=== PATIENT | female | born 1960 | race Two or more races ===

== ENCOUNTER 2019-01-14 07:59 | Emergency (ER) | payer OTHER ==
[~2019-01-14] VITALS: Ht 157.5 cm; Wt 58.5 kg
[2019-01-14 08:54] VITALS: BP 125/40
== END 2019-01-14 08:55 | disposition home or self-care (01) ==
LOC: ER 08:01
DX: K59.00 Constipation, unspecified (principal); M54.9 Dorsalgia, unspecified; R22.2 Localized swelling, mass and lump, trunk; E11.9 Type 2 diabetes mellitus without complications; Z88.5 Allergy status to narcotic agent
CPT/HCPCS: 99283

== ENCOUNTER 2019-03-07 10:54 | Inpatient (IN) | payer OTHER ==
[2019-03-07] VITALS (16 sets, daily range): BP systolic 159–202; BP diastolic 54–90
[~2019-03-07] VITALS: Ht 157.5 cm; Wt 57.6 kg
[2019-03-07] MEDS ORDERED: ringers solution, lacted 1,000 ML IV SCH ×2 (12:40→17:43)
[2019-03-07] MEDS ORDERED: famotidine 20mg tablet PO ONE (12:40)
[2019-03-07] MEDS ORDERED: NO HOME MEDS (13:04)
[2019-03-07 13:05] LABS: BASOPHILS # (AUTO) 0.1 X10'3 (0-0.2); EOSINOPHILS # (AUTO) 0.1 X10'3 (0-0.9); EOSINOPHILS % (AUTO) 1.1 % (0-6); LYMPHOCYTES # (AUTO) 1.3 X10'3 (1.1-4.8); LYMPHOCYTES % (AUTO) 12.7 % (21-51); MEAN CORPUSCULAR HGB CONC 30.7 g/dL (33.0-36.5); MEAN CORPUSCULAR VOLUME 65.1 FL (78-98); MONOCYTES # (AUTO) 0.5 X10'3 (0-0.9); MONOCYTES % (AUTO) 5.4 % (2-12); NEUTROPHILS % (AUTO) 79.8 % (42-75); PRE OP HEMATOCRIT 28.3 % (35.0-45.0); PRE OP PLATELET COUNT 447 X10'3 (140-440); RED BLOOD COUNT 4.36 X10'6 (4.20-5.60); RED CELL DISTRIBUTION WIDTH 18.3 % (11.5-14.5)
[2019-03-07 13:10] LABS: PRE OP HEMOGLOBIN 8.7 g/dL (12.0-16.0)
[2019-03-07 13:33] LABS: ANISOCYTOSIS 2+; PLATELET ESTIMATE INCREASED
[2019-03-07 13:34] LABS: HYPOCHROMASIA 1+; MICROCYTOSIS 2+
[2019-03-07] MEDS ORDERED: ceFOXitin 2 GM ADDVANTGE BAG 50 ML IV ONE (14:00)
[2019-03-07 14:16] LABS: ALANINE AMINOTRANSFERASE 11 U/L (12-78); ALBUMIN 2.6 G/DL (3.4-5.0); ALBUMIN/GLOBULIN RATIO 0.6 (1.1-1.5); ALKALINE PHOSPHATASE 98 IU/L (46-116); ANION GAP 8 (8-16); ASPARTATE AMINO TRANSFERASE 15 U/L (10-37); BILIRUBIN,TOTAL 0.3 MG/DL (0.1-1.0); BLOOD UREA NITROGEN 6 MG/DL (7-18); BUN/CREATININE RATIO 15.4 (6.6-38.0); CALCIUM 8.8 MG/DL (8.5-10.1); CHLORIDE 103 MMOL/L (99-107); CREATININE 0.39 MG/DL (0.40-0.90); GLUCOSE 137 MG/DL (70-104); POTASSIUM 3.6 MMOL/L (3.5-5.1); SODIUM 139 MMOL/L (135-145); TOTAL CARBON DIOXIDE 28.2 MMOL/L (24-32); TOTAL PROTEIN 6.9 G/DL (6.4-8.2); eGFR > 90 ML/MIN
[2019-03-07] MEDS ORDERED: fentaNYL /PF 50mcg/ml 5ml ampule ONE (17:31)
[2019-03-07] MEDS ORDERED: midazolam 2 mg/2 ml injection ONE (17:31)
[2019-03-07] MEDS ORDERED: sevoflurane 250ml liquid IH ONE (17:35)
[2019-03-07] MEDS ORDERED: rocuronium 10mg/ml inj IV ONE (17:38)
[2019-03-07] MEDS ORDERED: LIDOcaine 2% (20mg/ml) 5ml vial ONE (17:38)
[2019-03-07] MEDS ORDERED: propofol inj 20 ML IV ONE (17:38)
[2019-03-07] MEDS ORDERED: proCHLORperazine 10 MG/2 ml inj IV PRN (17:45)
[2019-03-07] MEDS ORDERED: meperidine/PF 25mg/ml syringe IV PRN ×3 (17:45)
[2019-03-07] MEDS ORDERED: morphine 4 MG/ML inj SYRINge IV PRN ×2 (17:45)
[2019-03-07] MEDS ORDERED: ondansetron/PF 4mg/2ml inj IV PRN (17:45)
[2019-03-07] MEDS ORDERED: dextrose 50%-water 50ml dispensing syringe IV PRN ×2 (19:05)
[2019-03-07] MEDS ORDERED: naloxone 0.4 mg/ml inj IV PRN (19:05)
[2019-03-07] MEDS ORDERED: CADD PCA waste documentation MC PRN (19:05)
[2019-03-07] MEDS ORDERED: MESSAGE TO PHARMACY PO ONE (19:05)
[2019-03-07] MEDS ORDERED: dextrose ORAL solution 15 GM/59 ML bottle PO PRN ×2 (19:05)
[2019-03-07] MEDS ORDERED: glucagon, human recombinant 1mg kit SUBCUT PRN (19:05)
[2019-03-07] MEDS ORDERED: meperidine/PF 50mg/ml syringe ONE (19:12)
[2019-03-07] MEDS ORDERED: glycopyrrolate 0.2mg/ml inj ONE (19:18)
[2019-03-07] MEDS ORDERED: labetalol 20mg/4ml (5mg/ml) syringe IV ONE (19:18)
[2019-03-07] MEDS ORDERED: ondansetron/PF 4mg/2ml inj ONE (19:18)
[2019-03-07] MEDS ORDERED: neostigmine methylsulfate 1 MG/ML 10ml vial ONE (19:18)
--- NOTE | 2019-03-07 19:18 | NUR ---
Received from OR via SURGICAL BED , accompanied by Anesthesiologist EMILY and report given by Anesthesiolgist. PATIENT WITH 20G PIV IN LEFT HAND RUNNING LR AT 100. LARGE TAPE DRESSING TO ABDOMEN CURRENTLY CDI NO DRAINS, BP ELEVATED. MD DIAZ AWARE. 10L MASK ON WITH 100% SATURATIONS. ALBERT CATHETER PRESENT WITH CLEAR YELLOW URINE PRESENT. Addendum: 03/07/19 at 1940 by Vazquez Alcazar RN, RN Amended: Links added.
[2019-03-07 19:41] LABS: ISTAT ANION GAP 9 (8-12); ISTAT BUN 3 mg/dL (6-19); ISTAT CL 102 mmol/L (99-107); ISTAT CREATININE 0.2 mg/dL (0.6-1.1); ISTAT GLUCOSE 152 mg/dL (70-104); ISTAT HGB 8.8 g/dl (12.0-16.0); ISTAT Hct 26 %PCV (35-48); ISTAT IONIZED CALCIUM 1.03 mmol/L (1.03-1.32); ISTAT K 4.5 mmol/L (3.5-5.1); ISTAT NA 136 mmol/L (135-145); ISTAT TOTAL CO2 25 mmol/L (24-32); ISTAT eGFR > 90 ML/MIN
[2019-03-07] MEDS ORDERED: hydrALAZINE 20mg/ml inj. IV ONE (19:45)
[2019-03-07] MEDS: hydrALAZINE 20mg/ml inj. IV PRN ×2 (19:46→20:12)
[2019-03-07] MEDS ORDERED: HYDROmorphone/NS 1 mg/ml CADD 50 ML IV SCH (19:51)
[2019-03-07] MEDS: HYDROmorphone/NS 1 mg/ml CADD 50 ML IV SCH ×2 (20:22→23:00)
--- NOTE | 2019-03-07 20:28 | NUR ---
ALL CRITERIA FOR TRANSFER TO THE FLOOR HAS BEEN ACHIEVED. VSS. BED LOW, CALL LIGHT AND VS. SET IN PLACE. RN PRESENT TO ACCEPT CARE. PATIENT RESTING COMFORTABLY IN BED. BELONGINGS SENT WITH PATIENT. DRESSINGS CDI. VSS. CADD PUMP PRESENT. SYSTOLIC BP IN 160S. JERI HURLEY PRESENT AND WILL ADMINISTER ZOFRAN FOR HER NAUSEA. Addendum: 03/07/19 at 2052 by Vazquez Alcazar RN, RN Amended: Links added.
[2019-03-07] MEDS: ondansetron/PF 4mg/2ml inj IV PRN (20:41)
[2019-03-07] MEDS: insulin glargine (Lantus) pen - multi-dose SQ SCH (21:00)
[2019-03-07] MEDS: Potassium Cl inj 20 MEQ in ringers solution, lacted 1,000 ML IV SCH (21:50)
[2019-03-07] MEDS: ceFOXitin 1 GM/D5W 50mL IVPB 50 ML IV SCH (23:24)
[2019-03-08] VITALS (7 sets, daily range): BP systolic 159–188; BP diastolic 61–67
[2019-03-08] MEDS ORDERED: ceFOXitin 1 GM/D5W 50mL IVPB 1,000 GM in normal saline 100ml IV soln 100 ML IV SCH ×2
[2019-03-08] MEDS: HYDROmorphone/NS 1 mg/ml CADD 50 ML IV SCH ×4 (01:00→07:00)
[2019-03-08] MEDS: Potassium Cl inj 20 MEQ in ringers solution, lacted 1,000 ML IV SCH ×4 (05:20→21:13)
[2019-03-08 06:21] LABS: BASOPHILS # (AUTO) 0.1 X10'3 (0-0.2); BASOPHILS % (AUTO) 0.4 % (0-1); EOSINOPHILS % (AUTO) 0 % (0-6); HEMATOCRIT 26.6 % (35.0-45.0); LYMPHOCYTES # (AUTO) 1.3 X10'3 (1.1-4.8); LYMPHOCYTES % (AUTO) 11.1 % (21-51); MEAN CORPUSCULAR HEMOGLOBIN 19.6 PG (27.0-31.0); MEAN CORPUSCULAR VOLUME 65.4 FL (78-98); MEAN PLATELET VOLUME 8.1 FL (7.4-10.4); MONOCYTES # (AUTO) 0.5 X10'3 (0-0.9); MONOCYTES % (AUTO) 4.2 % (2-12); NEUTROPHILS % (AUTO) 84.3 % (42-75); PLATELET COUNT 492 X10'3 (140-440); RED BLOOD COUNT 4.07 X10'6 (4.20-5.60); RED CELL DISTRIBUTION WIDTH 18.5 % (11.5-14.5); WHITE BLOOD COUNT 11.9 X10'3 (4.5-11.0)
--- NOTE | 2019-03-08 06:30 | NUR ---
Patient in room [facility]. I have received report from JERI Woodson and had the opportunity to ask questions and assume patient care.
[2019-03-08 06:31] LABS: ALBUMIN 2.2 G/DL (3.4-5.0); ANION GAP 10 (8-16); BLOOD UREA NITROGEN 8 MG/DL (7-18); BUN/CREATININE RATIO 22.9 (6.6-38.0); CALCIUM 8.8 MG/DL (8.5-10.1); CHLORIDE 104 MMOL/L (99-107); CREATININE 0.35 MG/DL (0.40-0.90); GLUCOSE 159 MG/DL (70-104); POTASSIUM 4.3 MMOL/L (3.5-5.1); SODIUM 139 MMOL/L (135-145); TOTAL CARBON DIOXIDE 25.4 MMOL/L (24-32); eGFR > 90 ML/MIN
--- NOTE | 2019-03-08 06:34 | NUR ---
Problems reprioritized. Patient report given, questions answered & plan of care reviewed with Tena RN.
[2019-03-08] MEDS: enoxaparin 40mg/0.4ml syringe SQ SCH (07:48)
[2019-03-08] MEDS: ceFOXitin 1 GM/D5W 50mL IVPB 50 ML IV SCH (07:48)
[2019-03-08 08:03] LABS: ANISOCYTOSIS 2+; HYPOCHROMASIA 1+; MICROCYTOSIS 2+; PLATELET ESTIMATE INCREASED; POLYCHROMASIA FEW
[2019-03-08] MEDS ORDERED: HYDROcodone/acetaminophen 5mg/325mg tablet PO PRN (08:10)
[2019-03-08] MEDS: HYDROcodone/acetaminophen 10/325mg tab PO PRN ×4 (08:24→18:46)
[2019-03-08] MEDS ORDERED: HYDROmorphone 1 mg/ml syringe IV PRN (12:25)
[2019-03-08] MEDS: hydrALAZINE 20mg/ml inj. IV PRN (12:32)
[2019-03-08] MEDS: ondansetron/PF 4mg/2ml inj IV PRN (12:41)
[2019-03-08] MEDS: insulin Lispro (HumaLOG) vial - multi-dose SQ SCH ×2 (13:19→18:39)
[2019-03-08] MEDS ORDERED: HYDROmorphone/NS 1 mg/ml CADD 50 ML IV SCH (13:25)
[2019-03-08] MEDS ORDERED: naloxone 0.4 mg/ml inj IV PRN (13:25)
[2019-03-08] MEDS ORDERED: CADD PCA waste documentation MC PRN (13:25)
--- NOTE | 2019-03-08 13:51 | NUR ---
Malnutrition consult: Patient's current wt is stable with recent documented scaled weight and current BMI appropriate. Unable to assess PO intake as patient's current diet order is ice chips. Pt with no significant decrease in muscle strength and no edema. Pt currently does not meet criteria for malnutrition. DM consult: Pt with A1c 9.5 with hx T2DM. Pt s/p ascending colon resection 03/07, education deferred at this time. Pt will need education once alert and oriented prior to discharge. LBM 03/06. Will continue to follow. Recommendations: 1) Advance to low fiber CHO controlled diet as medically indicated 2) DM ed prior to d/c once stable 3) Wt per rx Addendum: 03/08/19 at [address] Amended: Links added.
[2019-03-08] MEDS: HYDROmorphone 1 mg/ml syringe IV PRN ×2 (14:32→23:01)
[2019-03-08] MEDS: metoclopramide 5 mg/ml inj IV PRN (17:15)
--- NOTE | 2019-03-08 18:15 | NUR ---
Problems reprioritized. Patient report given, questions answered & plan of care reviewed with JERI Woodson.
--- NOTE | 2019-03-08 18:30 | NUR ---
Patient in room [facility]. I have received report from Tena WILCOX and had the opportunity to ask questions and assume patient care.
[2019-03-08] MEDS: insulin glargine (Lantus) pen - multi-dose SQ SCH (21:10)
[2019-03-09] VITALS: BP 164/60
[2019-03-09] MEDS: hydrALAZINE 20mg/ml inj. IV PRN ×3 (00:23→12:07)
[2019-03-09] MEDS: Potassium Cl inj 20 MEQ in ringers solution, lacted 1,000 ML IV SCH ×3 (04:27→21:14)
--- NOTE | 2019-03-09 04:31 | NUR ---
Pt encouraged to walk at this time. Pt stated she will call the next time she has to get up to go to the bathroom so he can walk in the [place]. Will continue to encourage patient to walk
[2019-03-09] MEDS: ondansetron/PF 4mg/2ml inj IV PRN (04:53)
[2019-03-09] MEDS: HYDROcodone/acetaminophen 10/325mg tab PO PRN (04:58)
--- NOTE | 2019-03-09 05:01 | NUR ---
Pt walked 10 feet out of her room and became very nauseous and was walked back to bed. Pt given zofran for nausea. Pt states she will attempt walking later this morning.
[2019-03-09] MEDS: HYDROmorphone 1 mg/ml syringe IV PRN ×4 (05:57→23:14)
--- NOTE | 2019-03-09 06:20 | NUR ---
Patient in room [facility]. I have received report from JERI Woodson and had the opportunity to ask questions and assume patient care.
--- NOTE | 2019-03-09 06:23 | NUR ---
Problems reprioritized. Patient report given, questions answered & plan of care reviewed with Tena RN.
[2019-03-09 06:30] VITALS: BP 162/53
[2019-03-09 06:43] LABS: ALBUMIN 2.1 G/DL (3.4-5.0); ANION GAP 10 (8-16); BLOOD UREA NITROGEN 4 MG/DL (7-18); BUN/CREATININE RATIO 12.9 (6.6-38.0); CALCIUM 8.6 MG/DL (8.5-10.1); CHLORIDE 102 MMOL/L (99-107); CREATININE 0.31 MG/DL (0.40-0.90); GLUCOSE 124 MG/DL (70-104); SODIUM 138 MMOL/L (135-145); TOTAL CARBON DIOXIDE 25.8 MMOL/L (24-32); eGFR > 90 ML/MIN
[2019-03-09 06:50] LABS: BASOPHILS % (AUTO) 0.4 % (0-1); EOSINOPHILS # (AUTO) 0.1 X10'3 (0-0.9); EOSINOPHILS % (AUTO) 0.7 % (0-6); HEMATOCRIT 24.9 % (35.0-45.0); HEMOGLOBIN 7.8 g/dl (12.0-16.0); LYMPHOCYTES % (AUTO) 9.4 % (21-51); MEAN CORPUSCULAR HEMOGLOBIN 20.3 PG (27.0-31.0); MEAN CORPUSCULAR HGB CONC 31.1 g/dL (33.0-36.5); MEAN CORPUSCULAR VOLUME 65.4 FL (78-98); MEAN PLATELET VOLUME 8.1 FL (7.4-10.4); MONOCYTES # (AUTO) 0.4 X10'3 (0-0.9); MONOCYTES % (AUTO) 3.9 % (2-12); NEUTROPHILS # (AUTO) 8.9 X10'3 (1.8-7.7); NEUTROPHILS % (AUTO) 85.6 % (42-75); PLATELET COUNT 438 X10'3 (140-440); RED BLOOD COUNT 3.81 X10'6 (4.20-5.60); RED CELL DISTRIBUTION WIDTH 18.9 % (11.5-14.5); WHITE BLOOD COUNT 10.4 X10'3 (4.5-11.0)
[2019-03-09 07:38] LABS: PLATELET ESTIMATE NORMAL
[2019-03-09 07:39] LABS: ANISOCYTOSIS 2+; HYPOCHROMASIA 1+; MICROCYTOSIS 2+
[2019-03-09] MEDS: enoxaparin 40mg/0.4ml syringe SQ SCH (07:50)
[2019-03-09] MEDS: metoclopramide 5 mg/ml inj IV PRN (12:07)
--- NOTE | 2019-03-09 13:45 | NUR ---
1230:Pt c/o feeling dizzy after sitting up to go to the restroom. Shortly thereafter pt c/o of the dizziness becoming increased. Pt decided she needed to remain sitting instead of ambulating, but wanted to see if the dizziness would subside. Shortly thereafter pt c/o the dizziness becoming severe & she might faint as she was lying down. Pt then became diaphoretic, c/o feeling extremely hot & the dizziness remained severe to the point pt stated she felt like she could faint @ any moment. Pt began vomiting & wretching. VS:98.2, PI=[id number], 190/72, 97% RA. Charge nurse notified & tech placed w/pt for continous observation w/VS being checked frequently:LD=764h & EQv=[id number]/60s-80s. Dr Norton notified:Order received for NG tube & NPO. 1330:NG tube placed. Shortly thereafter pt states she feels better, no further N/V & no dizziness. VI=257/71, SZ=084, 96% RA. Addendum: 03/09/19 at 1455 by Tena Rizo RN Due to all of the above, 1 unit of insulin held as ordered by Dr Mandel.
[2019-03-09] MEDS ORDERED: nitroGLYCERIN 0.4mg/hour patch TD PRN (14:55)
[2019-03-09] MEDS: insulin Lispro (HumaLOG) vial - multi-dose SQ SCH (17:32)
--- NOTE | 2019-03-09 18:10 | NUR ---
Problems reprioritized. Patient report given, questions answered & plan of care reviewed with JERI Saeed.
--- NOTE | 2019-03-09 19:03 | NUR ---
Patient in room [facility]. I have received report from Tena WILCOX and had the opportunity to ask questions and assume patient care.
[2019-03-09 20:00] VITALS: BP 156/57
[2019-03-09] MEDS: insulin glargine (Lantus) pen - multi-dose SQ SCH (21:13)
[2019-03-10 00:55] VITALS: BP 161/64
--- NOTE | 2019-03-10 06:15 | NUR ---
Patient in room [facility]. I have received report from JERI Saeed and had the opportunity to ask questions and assume patient care.
--- NOTE | 2019-03-10 06:15 | NUR ---
Problems reprioritized. Patient report given, questions answered & plan of care reviewed with Tena RN.
[2019-03-10 06:19] LABS: ANION GAP 8 (8-16); BLOOD UREA NITROGEN 5 MG/DL (7-18); BUN/CREATININE RATIO 16.7 (6.6-38.0); CALCIUM 8.8 MG/DL (8.5-10.1); CHLORIDE 103 MMOL/L (99-107); GLUCOSE 79 MG/DL (70-104); POTASSIUM 3.7 MMOL/L (3.5-5.1); SODIUM 139 MMOL/L (135-145); TOTAL CARBON DIOXIDE 28.2 MMOL/L (24-32); eGFR > 90 ML/MIN
[2019-03-10 06:21] LABS: BASOPHILS # (AUTO) 0.1 X10'3 (0-0.2); BASOPHILS % (AUTO) 0.5 % (0-1); EOSINOPHILS # (AUTO) 0.1 X10'3 (0-0.9); EOSINOPHILS % (AUTO) 0.5 % (0-6); HEMOGLOBIN 7.7 g/dl (12.0-16.0); LYMPHOCYTES # (AUTO) 1.1 X10'3 (1.1-4.8); LYMPHOCYTES % (AUTO) 9.8 % (21-51); MEAN CORPUSCULAR HEMOGLOBIN 19.9 PG (27.0-31.0); MEAN CORPUSCULAR HGB CONC 30.8 g/dL (33.0-36.5); MEAN CORPUSCULAR VOLUME 64.5 FL (78-98); MEAN PLATELET VOLUME 8.1 FL (7.4-10.4); MONOCYTES # (AUTO) 0.4 X10'3 (0-0.9); MONOCYTES % (AUTO) 3.9 % (2-12); NEUTROPHILS # (AUTO) 9.6 X10'3 (1.8-7.7); NEUTROPHILS % (AUTO) 85.3 % (42-75); PLATELET COUNT 518 X10'3 (140-440); RED BLOOD COUNT 3.88 X10'6 (4.20-5.60); RED CELL DISTRIBUTION WIDTH 18.5 % (11.5-14.5); WHITE BLOOD COUNT 11.2 X10'3 (4.5-11.0)
[2019-03-10 06:30] VITALS: BP 174/67
[2019-03-10] MEDS: enoxaparin 40mg/0.4ml syringe SQ SCH (07:40)
[2019-03-10] MEDS: hydrALAZINE 20mg/ml inj. IV PRN ×2 (07:40→11:50)
[2019-03-10] MEDS: HYDROmorphone 1 mg/ml syringe IV PRN ×3 (07:41→20:25)
[2019-03-10 11:00] VITALS: BP 161/66
[2019-03-10 11:30] VITALS: BP_SYST 173; BP_SYST 178; BP_SYST 185; BP_DIAS 61; BP_DIAS 64; BP_DIAS 68
[2019-03-10] MEDS: Potassium Cl inj 20 MEQ in ringers solution, lacted 1,000 ML IV SCH (14:08)
[2019-03-10] MEDS ORDERED: HYDROmorphone inj. 0.5 MG/0.5 ML DISP.SYRIN ONE (16:25)
[2019-03-10] MEDS: lisinopril 20mg tablet PO SCH (16:38)
[2019-03-10 18:00] VITALS: BP 163/66
--- NOTE | 2019-03-10 18:15 | NUR ---
Problems reprioritized. Patient report given, questions answered & plan of care reviewed with JERI Nguyen & JERI Saeed.
--- NOTE | 2019-03-10 19:15 | NUR ---
Patient in room [facility]. I have received report from Tena WILCOX and had the opportunity to ask questions and assume patient care.
[2019-03-10] MEDS: insulin glargine (Lantus) pen - multi-dose SQ SCH (21:00)
[2019-03-11] VITALS: BP 181/67
[2019-03-11] MEDS: HYDROmorphone inj. 0.5 MG/0.5 ML DISP.SYRIN IV PRN ×5 (00:37→17:50)
[2019-03-11 05:15] LABS: BASOPHILS # (AUTO) 0.1 X10'3 (0-0.2); BASOPHILS % (AUTO) 0.7 % (0-1); EOSINOPHILS # (AUTO) 0.1 X10'3 (0-0.9); EOSINOPHILS % (AUTO) 0.8 % (0-6); HEMATOCRIT 25.4 % (35.0-45.0); HEMOGLOBIN 7.9 g/dl (12.0-16.0); LYMPHOCYTES # (AUTO) 1.1 X10'3 (1.1-4.8); MEAN CORPUSCULAR HEMOGLOBIN 20.1 PG (27.0-31.0); MEAN CORPUSCULAR HGB CONC 31.3 g/dL (33.0-36.5); MEAN CORPUSCULAR VOLUME 64.2 FL (78-98); MEAN PLATELET VOLUME 7.8 FL (7.4-10.4); MONOCYTES # (AUTO) 0.5 X10'3 (0-0.9); MONOCYTES % (AUTO) 4.6 % (2-12); NEUTROPHILS # (AUTO) 8.5 X10'3 (1.8-7.7); NEUTROPHILS % (AUTO) 82.9 % (42-75); PLATELET COUNT 540 X10'3 (140-440); RED BLOOD COUNT 3.95 X10'6 (4.20-5.60); WHITE BLOOD COUNT 10.3 X10'3 (4.5-11.0)
[2019-03-11 05:27] LABS: ANION GAP 11 (8-16); BLOOD UREA NITROGEN 7 MG/DL (7-18); BUN/CREATININE RATIO 24.1 (6.6-38.0); CALCIUM 8.4 MG/DL (8.5-10.1); CHLORIDE 103 MMOL/L (99-107); CREATININE 0.29 MG/DL (0.40-0.90); GLUCOSE 76 MG/DL (70-104); POTASSIUM 3.7 MMOL/L (3.5-5.1); SODIUM 142 MMOL/L (135-145); TOTAL CARBON DIOXIDE 28.4 MMOL/L (24-32); eGFR > 90 ML/MIN
--- NOTE | 2019-03-11 06:32 | NUR ---
Problems reprioritized. Patient report given, questions answered & plan of care reviewed with Rebecca WILCOX.
[2019-03-11] MEDS: lisinopril 20mg tablet PO SCH ×2 (07:12→20:53)
[2019-03-11] MEDS: enoxaparin 40mg/0.4ml syringe SQ SCH (07:13)
[2019-03-11 07:26] VITALS: BP 183/68
[2019-03-11 07:40] LABS: PLATELET ESTIMATE INCREASED
[2019-03-11 07:41] LABS: HYPOCHROMASIA 1+; POLYCHROMASIA 1+
[2019-03-11 07:46] LABS: ANISOCYTOSIS 2+
[2019-03-11] MEDS: meclizine 12.5mg tablet PO PRN (10:53)
[2019-03-11 11:42] VITALS: BP 178/60
[2019-03-11] MEDS: Potassium Cl inj 20 MEQ in ringers solution, lacted 1,000 ML IV SCH ×2 (11:56→15:45)
[2019-03-11] MEDS: hydrALAZINE 20mg/ml inj. IV PRN (12:17)
--- NOTE | 2019-03-11 12:43 | NUR ---
WOUND VAC EDUCATION PROVIDED BY WOUND CARE 1. Patient instructed to call the Wound Center or their Home Health Agency immediately if: * They notice a change in the color or amount of the fluid in the canister. * Their wound looks more red than usual or has a foul smell. * The skin around their wound looks reddened or irritated. * The dressing feels loose or appears to be loose. * They experience any increase or changes in their pain. * The alarm will not turn off. 2. Patient instructed that they should not be disconnected from suction for more than 2 hours at a time. * If they are not able to get the suction back on, they need to remove the dressing and take all of the foam out of the wound. * Then moisten sterile gauze with normal saline and place on/in the wound. * Change the dressing once a day until arrangements have been made to replace the wound vac dressing. 3. Patient instructed to turn the wound vac machine OFF and call 911 or go to the ED immediately if their canister fills rapidly with blood. 4. If any of these occur while in the hospital tell a nurse immediately. Addendum: 03/11/19 at 1243 by Marsha Jaramillo RN Amended: Links added.
--- NOTE | 2019-03-11 14:17 | NUR ---
Patient doesn't want wound care at this time, states that he is really tired and wants to rest. Will follow up in a few hours. Addendum: 03/11/19 at 1418 by Rebecca Virk RN Wrong patient, charted in error.
--- NOTE | 2019-03-11 18:28 | NUR ---
Received report from JERI Fernandez. Patient is awake and alert on room air, in no apparent distress. Call light and items of frequent use within reach. Will continue to monitor.
--- NOTE | 2019-03-11 18:51 | NUR ---
Report given to [facility] nurse.
[2019-03-11 20:00] VITALS: BP 179/61
[2019-03-11] MEDS: insulin glargine (Lantus) pen - multi-dose SQ SCH (20:54)
[2019-03-11] MEDS ORDERED: HYDROmorphone 1 mg/ml syringe ONE (22:10)
[2019-03-12] VITALS: BP 157/60
[2019-03-12] MEDS: HYDROmorphone 1 mg/ml syringe IV PRN ×5 (02:37→21:51)
[2019-03-12 05:37] LABS: BASOPHILS # (AUTO) 0.1 X10'3 (0-0.2); EOSINOPHILS # (AUTO) 0.2 X10'3 (0-0.9); HEMATOCRIT 28.1 % (35.0-45.0); HEMOGLOBIN 8.5 g/dl (12.0-16.0); MEAN CORPUSCULAR HEMOGLOBIN 19.7 PG (27.0-31.0); MONOCYTES # (AUTO) 0.5 X10'3 (0-0.9); MONOCYTES % (AUTO) 4.8 % (2-12)
[2019-03-12 05:39] LABS: EOSINOPHILS % (AUTO) 1.6 % (0-6); LYMPHOCYTES # (AUTO) 1.1 X10'3 (1.1-4.8); LYMPHOCYTES % (AUTO) 10.4 % (21-51); MEAN CORPUSCULAR HGB CONC 30.2 g/dL (33.0-36.5); MEAN CORPUSCULAR VOLUME 65.1 FL (78-98); MEAN PLATELET VOLUME 7.9 FL (7.4-10.4); NEUTROPHILS # (AUTO) 8.9 X10'3 (1.8-7.7); NEUTROPHILS % (AUTO) 82.2 % (42-75); PLATELET COUNT 636 X10'3 (140-440); RED BLOOD COUNT 4.32 X10'6 (4.20-5.60); RED CELL DISTRIBUTION WIDTH 18.9 % (11.5-14.5); WHITE BLOOD COUNT 10.8 X10'3 (4.5-11.0)
[2019-03-12 05:48] LABS: ALBUMIN 2.3 G/DL (3.4-5.0); ANION GAP 15 (8-16); BLOOD UREA NITROGEN 9 MG/DL (7-18); BUN/CREATININE RATIO 28.1 (6.6-38.0); CALCIUM 8.8 MG/DL (8.5-10.1); CHLORIDE 101 MMOL/L (99-107); CREATININE 0.32 MG/DL (0.40-0.90); GLUCOSE 85 MG/DL (70-104); POTASSIUM 4.1 MMOL/L (3.5-5.1); SODIUM 141 MMOL/L (135-145); TOTAL CARBON DIOXIDE 24.9 MMOL/L (24-32); eGFR > 90 ML/MIN
--- NOTE | 2019-03-12 06:23 | NUR ---
Problems reprioritized. Patient report given, questions answered & plan of care reviewed with JERI Fernandez.
[2019-03-12] MEDS: Potassium Cl inj 20 MEQ in ringers solution, lacted 1,000 ML IV SCH ×2 (08:30→20:37)
[2019-03-12] MEDS: lisinopril 20mg tablet PO SCH ×2 (08:31→20:38)
[2019-03-12] MEDS: enoxaparin 40mg/0.4ml syringe SQ SCH (08:32)
[2019-03-12] MEDS: meclizine 12.5mg tablet PO PRN (08:37)
[2019-03-12] MEDS: metoprolol tartrate 25mg tablet PO SCH (08:53)
[2019-03-12 09:25] LABS: ANISOCYTOSIS 2+; PLATELET ESTIMATE INCREASED; TOTAL CELLS COUNTED 100
[2019-03-12 09:26] LABS: MICROCYTOSIS 2+; TOXIC GRANULATION 1+
[2019-03-12 09:27] LABS: HYPOCHROMASIA 1+; POLYCHROMASIA FEW
[2019-03-12] MEDS: hydrALAZINE 20mg/ml inj. IV PRN (10:20)
[2019-03-12 11:00] VITALS: BP 174/69
--- NOTE | 2019-03-12 15:21 | NUR ---
Wound consult: Pt s/p ascending colon resection with placement of wound VAC. Pt seen at bedside provided with written and verbal education of the following: protein, low fiber, and DM with referral to outpatient DM class and a list of fiber content of foods with RD contact information. Pt reports making several changes to her diet for DM management including decreasing sugar intake. Pt reports wanting to eliminate beef from diet and states she has protein powder at home to help ensure adequate protein intake. Pt reports also better managing her DM with steady, appropriate weight loss and increasing exercise. Pt appears knowledgeable in DM management through diet and I believe she will be very compliant with following diet discussed for appropriate wound healing. Pt remains NPO with ice chips only, hasn't passed gas with LBM 03/06. Pt with right NG tube for suction and with Reglan PRN. Will continue to follow. Recommendations: 1) Advance to low fiber CHO controlled diet as medically indicated 2) Monitor need for ONS/additional protein with diet advancement; pt states she doesn't like Ensure or Glucerna; likes HB eggs, cottage cheese, yogurt 3) Promotility agent 4) Wt per rx Addendum: 03/12/19 at [address] Amended: Links added.
[2019-03-12 18:00] VITALS: BP 163/61
--- NOTE | 2019-03-12 18:32 | NUR ---
Patient in room [facility]. I have received report from JERI Fernandez and had the opportunity to ask questions and assume patient care.
--- NOTE | 2019-03-12 19:30 | NUR ---
Patient's BP was 163/61. I offered Hydralazine, explained purpose of it, but pt refused to take it.
[2019-03-12] MEDS: insulin glargine (Lantus) pen - multi-dose SQ SCH (21:00)
[2019-03-13 00:52] VITALS: BP 161/54
--- NOTE | 2019-03-13 06:58 | NUR ---
Problems reprioritized. Patient report given, questions answered & plan of care reviewed with JERI Saenz.
--- NOTE | 2019-03-13 07:05 | NUR ---
Patient in room [facility]. I have received report from Shahbaz WILCOX and had the opportunity to ask questions and assume patient care.
[2019-03-13 08:00] VITALS: BP 179/65
[2019-03-13] MEDS: meclizine 12.5mg tablet PO PRN (08:01)
[2019-03-13] MEDS: metoprolol tartrate 25mg tablet PO SCH (08:02)
[2019-03-13] MEDS: lisinopril 20mg tablet PO SCH ×2 (08:02→19:49)
[2019-03-13] MEDS: enoxaparin 40mg/0.4ml syringe SQ SCH (08:03)
[2019-03-13] MEDS: HYDROmorphone 1 mg/ml syringe IV PRN ×4 (08:05→21:55)
[2019-03-13 11:00] VITALS: BP 186/65
[2019-03-13] MEDS: Potassium Cl inj 20 MEQ in ringers solution, lacted 1,000 ML IV SCH (11:11)
--- NOTE | 2019-03-13 17:36 | NUR ---
PATIENT MEDICATED [id number] FOR PAIN. WOUNDVAC CONTINUES. SEEN BY dR Leahy . QUITE TEARFUL FOLLOWING NEWS GIVEN. FAMILY PRESENT , tIME SPENT WITH PATIENT. FAMILY REMAINS IN ROOM
--- NOTE | 2019-03-13 18:05 | NUR ---
Patient in room [facility]. I have received report from Letty WILCOX and had the opportunity to ask questions and assume patient care.
--- NOTE | 2019-03-13 18:45 | NUR ---
Problems reprioritized. Patient report given, questions answered & plan of care reviewed with Jacques WILCOX.
[2019-03-13 20:00] VITALS: BP 171/60
[2019-03-13] MEDS: insulin glargine (Lantus) pen - multi-dose SQ SCH (21:00)
[2019-03-14] VITALS: BP 163/64
[2019-03-14] MEDS: HYDROmorphone 1 mg/ml syringe IV PRN ×5 (02:28→21:44)
[2019-03-14] MEDS: Potassium Cl inj 20 MEQ in ringers solution, lacted 1,000 ML IV SCH ×2 (02:36→19:21)
--- NOTE | 2019-03-14 06:14 | NUR ---
Patient in room [facility]. I have received report from Jacques WILCOX and had the opportunity to ask questions and assume patient care.
--- NOTE | 2019-03-14 06:19 | NUR ---
Problems reprioritized. Patient report given, questions answered & plan of care reviewed with Letty WILCOX.
[2019-03-14 06:59] VITALS: BP 177/71
[2019-03-14] MEDS: enoxaparin 40mg/0.4ml syringe SQ SCH (07:45)
[2019-03-14] MEDS: metoprolol tartrate 25mg tablet PO SCH (07:46)
[2019-03-14] MEDS: lisinopril 20mg tablet PO SCH ×2 (07:46→19:03)
[2019-03-14 11:00] VITALS: BP 169/57
[2019-03-14 18:00] VITALS: BP 167/79
--- NOTE | 2019-03-14 18:30 | NUR ---
Patient in room [facility]. I have received report from Letty WILCOX and had the opportunity to ask questions and assume patient care.
[2019-03-14] MEDS: insulin glargine (Lantus) pen - multi-dose SQ SCH (21:00)
[2019-03-15] VITALS: BP 159/75
[2019-03-15] MEDS: HYDROmorphone 1 mg/ml syringe IV PRN ×3 (02:19→12:19)
[2019-03-15 06:00] VITALS: BP 186/74
--- NOTE | 2019-03-15 06:58 | NUR ---
Problems reprioritized. Patient report given, questions answered & plan of care reviewed with Annette WILCOX.
[2019-03-15] MEDS: metoprolol tartrate 25mg tablet PO SCH (07:59)
[2019-03-15] MEDS: enoxaparin 40mg/0.4ml syringe SQ SCH (08:00)
[2019-03-15] MEDS: lisinopril 20mg tablet PO SCH (08:00)
[2019-03-15] MEDS ORDERED: OXYC-150 PO (09:03)
[2019-03-15] MEDS: Potassium Cl inj 20 MEQ in ringers solution, lacted 1,000 ML IV SCH (10:12)
[2019-03-15 11:00] VITALS: BP 176/75
--- NOTE | 2019-03-15 13:49 | NUR ---
Reviewed discharge instructions with pt. Spouse was present. Advised pt and spouse of how to perform wet to dry dressing changes.Pt and spouse verbalized understanding. All of pt's belongings were returned to pt.Pt is alert and oriented and does not have c/o pain or discomfort at this time. Pt was wheeled downstairs to be driven home by her spouse.
== END 2019-03-15 13:30 | disposition home or self-care (01) | DRG 330 ==
LOC: PAS IN 11:52 → EDSTATUS 14:45 → SUR 3N 21:11
PROVIDERS: ADMIT Surgery; ATTEND Surgery
PROC: 0DTK0ZZ Resection of Ascending Colon, Open Approach (ICD-10-PCS; principal; 2019-03-07 17:35)
DX: K63.9 Disease of intestine, unspecified (principal); R18.8 Other ascites; Z88.6 Allergy status to analgesic agent; Z83.3 Family history of diabetes mellitus; Z82.49 Family history of ischemic heart disease and other diseases of the circulatory system; K56.7 Ileus, unspecified; R03.0 Elevated blood-pressure reading, without diagnosis of hypertension
CPT/HCPCS: Z7506; Z7508; 36415; 80047; 80048; 80053; 82948; 83036; 85025; 86885; 86900; 86901; 86920; 87081; 93005; 97110; 97116; 97161; 97530; A4618; A6253; A6446; A6449; A7000; C1758; G0378; J0360; J0694; J1170; J1650; J1815; J2001; J2175; J2250; J2405; J2704; J2710; J2765; J3010; J3480; J3490; J7120; J8597